=== PATIENT | male | born 1980 | race Caucasian/White ===

== ENCOUNTER 2024-05-16 09:28 | Observation (INO) ==
[2024-05-16] MEDS ORDERED: ULTRAM PO PRN (10:28)
[2024-05-16 10:59] LABS: BASOPHILS # (AUTO) 0.1 X10^3/uL (0.0-0.1); BASOPHILS % (AUTO) 0.7 % (0.2-1.0); EOSINOPHILS # (AUTO) 0.6 x10^3/uL (0.0-0.2); EOSINOPHILS % (AUTO) 5.7 % (0.9-2.9); HEMATOCRIT 43.2 % (42.0-54.0); HEMOGLOBIN 14.5 g/dL (13.5-18.0); LYMPHOCYTES # (AUTO) 1.8 X10^3/uL (1.3-2.9); LYMPHOCYTES % (AUTO) 17.5 % (21.0-51.0); MEAN CORPUSCULAR HEMOGLOBIN 26.7 pg (27.0-34.0); MEAN CORPUSCULAR HGB CONC 33.6 g/dL (33.0-35.0); MEAN CORPUSCULAR VOLUME 79.6 fL (80.0-100.0); MEAN PLATELET VOLUME 8.4 fL (7.4-11.0); MONOCYTES # (AUTO) 0.9 x10^3/uL (0.3-0.8); MONOCYTES % (AUTO) 8.6 % (0.0-13.0); NEUTROPHILS # (AUTO) 6.9 x10^3/uL (2.2-4.8); NEUTROPHILS % (AUTO) 67.5 % (42.0-75.0); PLATELET COUNT 180 X10^3/uL (150.0-450.0); RED BLOOD COUNT 5.43 X10^6/uL (4.7-6.0); RED CELL DISTRIBUTION WIDTH 16.1 % (11.6-16.5); WHITE BLOOD COUNT 10.2 X10^3/uL (3.6-10.0)
[2024-05-16] MEDS ORDERED: PHARMACY CONSULT - VANCOMYCIN XX SCH (11:00)
[2024-05-16 11:11] LABS: ALANINE AMINOTRANSFERASE 112 Units/L (12-78); ALBUMIN 2.9 g/dL (3.4-5.0); ALKALINE PHOSPHATASE 136 Units/L (46-116); ASPARTATE AMINO TRANSFERASE 59 Units/L (15-37); BLOOD UREA NITROGEN 11 mg/dL (7-18); CALCIUM 7.9 mg/dL (8.5-10.1); CARBON DIOXIDE 32.4 mmol/L (21-32); CHLORIDE 99 mmol/L (98-107); COR CA(FOR HYPOALB) 8.8 mg/dL (8.5-10.1); COR NA(FOR HYPERGLY) 139 mmol/L (136-145); CREATININE 1.32 mg/dL (0.70-1.30); GLUCOSE 147 mg/dL (65-99); SODIUM 138 mmol/L (136-145); TOTAL PROTEIN 6.9 g/dL (6.4-8.2); eGFR NON BLACK RACES > 60 (>60)
[2024-05-16] MEDS: VANCOMYCIN IV *PREMIX 1.5 G/300 ML BAG 1.5 G/300 ML PIGGYBACK IV ONE (11:13)
[2024-05-16] MEDS: TORADOL 30 MG VIAL IVP SCH (11:15)
[2024-05-16] MEDS: NS 250 ML IV 250 ML IV ONE (11:32)
[2024-05-16 11:53] VITALS: BMI 33.4
[2024-05-16] MEDS ORDERED: CONSULT PHARMACY - POTASSIUM & MAGNESIUM XX SCH (16:30)
[2024-05-16] MEDS: K-DUR TAB 20 MEQ PO SCH (17:46)
--- NOTE | 2024-05-16 18:59 | DR.H&P ---
H&P History & Physical for Day of: H&P Date: 05/16/24 Chief Complaint Chief Complaint: skin infection neck redness and pain History of Present Illness History of Present Illness: Patient is a 43-year-old male with a past medical history of hypertension presenting after failing outpatient treatment for cellulitis. He is a direct admission. Patient reported that earlier in the week on Sunday he noticed a spot in the back of his neck that was painful and red. He reports that symptoms progressively worsen over the week and redness and pain started to spread. He was treated outpatient with clindamycin without any improvement. He was admitted for cellulitis. On admission labs/imaging: WBC 10.2, hemoglobin 14.5, platelets 180, sodium 138, potassium 3.0, creatinine 1.32, glucose 147, CRP 64. X-ray of the neck is pending. Will start on IV antibiotics vancomycin. Margins have been demarcated. There does not appear to be any fluctuance that would require an incision and drainage. Was not able to obtain any discharge for culture. Will restart home medications. Will treat hypokalemia with electrolyte repletion per protocol. Restart home medication for hypertension. Otherwise continue with current treatment plan. Continue to closely monitor and follow-up labs in the morning. Past Surgical History Surgical History: No History Family History Family Medical History: Cancer, OR and Hypertension Social History Does any household member use tobacco: No Alcohol Use: Rarely Drug Use: None Medications Home Medications: Home Medications Medication Instructions Recorded Confirmed Type losartan 50 mg tablet 50 mg PO QDAY 05/16/24 05/16/24 History Allergies Allergies Allergy/AdvReac Type Severity Reaction Status Date / Time nkda Allergy Unknown Uncoded 05/16/24 09:22 Labs 05/16/24 10:45 05/16/24 10:45 Labs: Laboratory WBC 10.2 X10^3/uL (3.6-10.0) H 05/16/24 10:45 RBC 5.43 X10^6/uL (4.7-6.0) 05/16/24 10:45 Hgb 14.5 g/dL (13.5-18.0) 05/16/24 10:45 Hct 43.2 % (42.0-54.0) 05/16/24 10:45 MCV 79.6 fL (80.0-100.0) L 05/16/24 10:45 MCH 26.7 pg (27.0-34.0) L 05/16/24 10:45 MCHC 33.6 g/dL (33.0-35.0) 05/16/24 10:45 RDW 16.1 % (11.6-16.5) 05/16/24 10:45 Plt Count 180 X10^3/uL (150.0-450.0) 05/16/24 10:45 MPV 8.4 fL (7.4-11.0) 05/16/24 10:45 Neut % (Auto) 67.5 % (42.0-75.0) 05/16/24 10:45 Lymph % (Auto) 17.5 % (21.0-51.0) L 05/16/24 10:45 [place] % (Auto) 8.6 % (0.0-13.0) 05/16/24 10:45 Eos % (Auto) 5.7 % (0.9-2.9) H 05/16/24 10:45 Baso % (Auto) 0.7 % (0.2-1.0) 05/16/24 10:45 Neut # (Auto) 6.9 x10^3/uL (2.2-4.8) H 05/16/24 10:45 Lymph # (Auto) 1.8 X10^3/uL (1.3-2.9) 05/16/24 10:45 [place] # (Auto) 0.9 x10^3/uL (0.3-0.8) H 05/16/24 10:45 Eos # (Auto) 0.6 x10^3/uL (0.0-0.2) H 05/16/24 10:45 Baso # (Auto) 0.1 X10^3/uL (0.0-0.1) 05/16/24 10:45 Absolute Nucleated RBC 0.0 /100WBC 05/16/24 10:45 Sodium 138 mmol/L (136-145) 05/16/24 10:45 Corrected Sodium 139 mmol/L (136-145) 05/16/24 10:45 Potassium 3.0 mmol/L (3.5-5.1) L 05/16/24 10:45 Chloride 99 mmol/L (98-107) 05/16/24 10:45 Carbon Dioxide 32.4 mmol/L (21-32) H 05/16/24 10:45 BUN 11 mg/dL (7-18) 05/16/24 10:45 Creatinine 1.32 mg/dL (0.70-1.30) H 05/16/24 10:45 Est GFR (MDRD) Af Amer > 60 (>60) 05/16/24 10:45 Est GFR (MDRD) Non-Af > 60 (>60) 05/16/24 10:45 Glucose 147 mg/dL (65-99) H 05/16/24 10:45 Calcium 7.9 mg/dL (8.5-10.1) L 05/16/24 10:45 Corrected Calcium 8.8 mg/dL (8.5-10.1) 05/16/24 10:45 Magnesium 2.0 mg/dL (2.0-2.9) 05/16/24 10:45 Total Bilirubin 0.80 mg/dL (0.2-1.0) 05/16/24 10:45 AST 59 Units/L (15-37) H 05/16/24 10:45 ALT 112 Units/L (12-78) H 05/16/24 10:45 Alkaline Phosphatase 136 Units/L (46-116) H 05/16/24 10:45 C-Reactive Protein 64.60 mg/L (0-3.0) H 05/16/24 10:45 Total Protein 6.9 g/dL (6.4-8.2) 05/16/24 10:45 Albumin 2.9 g/dL (3.4-5.0) L 05/16/24 10:45 Globulin 4.0 g/dL (2.5-4.5) 05/16/24 10:45 Albumin/Globulin Ratio 0.7 Ratio (1.1-2.1) L 05/16/24 10:45 Review of Systems Constitutional: No Symptoms Reported Eyes: No Symptoms Reported ENT: No Symptoms Reported Respiratory: No Symptoms Reported Cardiovascular: No Symptoms Reported Gastrointestinal: No Symptoms Reported Genitourinary: No Symptoms Reported Musculoskeletal: No Symptoms Reported Skin: Other (neck erythema and pain) Neurological: No Symptoms Reported Physical Exam Vital Signs: Vital Signs Temperature 98.5 F Pulse Rate [Left Brachial] 95 Respiratory Rate 18 Respiratory Rate 18 Respiratory Rate 21 Respiratory Rate 21 Respiratory Rate 18 Blood Pressure [Right Arm] 136/71 O2 Sat by Pulse Oximetry 95 Oriented: Normal Eyes: Normal Ear: Normal Nose: Normal Throat: Normal Respiratory: Clear Throughout Cardiovascular: Normal : Normal Auscultation: Bowel Sounds: Normal Palpation: Normal Tenderness: Normal Skin: Other (erythema and induration of posterior neck, no discharge, warm) Musculoskeletal: Normal Psychiatric: Normal Mood Description: Calm and Appropriate Affect: Normal Speech Pattern: Clear and Appropriate Assessment/Plan (1) Cellulitis: Status: Acute Plan: IV vancomycin (2) Hypokalemia: Status: Acute Plan: replete per protocol
[2024-05-16] MEDS: VANCOMYCIN IV *PREMIX 1.25 G/250 ML BAG 1.25 G/250 ML PIGGYBACK IV SCH (21:05)
[2024-05-17] MEDS: TYLENOL 325 MG TAB PO PRN (00:39)
--- NOTE | 2024-05-17 05:57 | RAD ---
EXAM:Cervical spine five viewsHISTORY:CellulitisCOMPARISON:None br.br.br.br involving the vertebral bodies, disc spaces, neural foramina or prevertebral soft tissues. Atlantoaxial complex is midline and intact.IMPRESSION:No definite abnormality identified.THIS IS AN ELECTRONICALLY VERIFIED FINAL REPORT05/17/2024 5:54 AM - Electronically signed by Rell Russ MD
[2024-05-17 06:34] LABS: BASOPHILS # (AUTO) 0.1 X10^3/uL (0.0-0.1); BASOPHILS % (AUTO) 0.7 % (0.2-1.0); EOSINOPHILS # (AUTO) 0.8 x10^3/uL (0.0-0.2); EOSINOPHILS % (AUTO) 8.4 % (0.9-2.9); HEMATOCRIT 42.5 % (42.0-54.0); HEMOGLOBIN 14.2 g/dL (13.5-18.0); LYMPHOCYTES # (AUTO) 3.7 X10^3/uL (1.3-2.9); LYMPHOCYTES % (AUTO) 36.4 % (21.0-51.0); MEAN CORPUSCULAR HEMOGLOBIN 26.6 pg (27.0-34.0); MEAN CORPUSCULAR HGB CONC 33.5 g/dL (33.0-35.0); MEAN CORPUSCULAR VOLUME 79.4 fL (80.0-100.0); MEAN PLATELET VOLUME 8.8 fL (7.4-11.0); MONOCYTES # (AUTO) 0.8 x10^3/uL (0.3-0.8); MONOCYTES % (AUTO) 7.6 % (0.0-13.0); NEUTROPHILS # (AUTO) 4.7 x10^3/uL (2.2-4.8); NEUTROPHILS % (AUTO) 46.9 % (42.0-75.0); PLATELET COUNT 198 X10^3/uL (150.0-450.0); RED BLOOD COUNT 5.35 X10^6/uL (4.7-6.0); RED CELL DISTRIBUTION WIDTH 15.9 % (11.6-16.5); WHITE BLOOD COUNT 10.1 X10^3/uL (3.6-10.0)
[2024-05-17 07:00] LABS: ALANINE AMINOTRANSFERASE 125 Units/L (12-78); ALBUMIN 2.6 g/dL (3.4-5.0); ALKALINE PHOSPHATASE 132 Units/L (46-116); ASPARTATE AMINO TRANSFERASE 71 Units/L (15-37); BLOOD UREA NITROGEN 15 mg/dL (7-18); CALCIUM 7.9 mg/dL (8.5-10.1); CHLORIDE 104 mmol/L (98-107); CREATININE 1.09 mg/dL (0.70-1.30); GLUCOSE 101 mg/dL (65-99); POTASSIUM 3.3 mmol/L (3.5-5.1); SODIUM 142 mmol/L (136-145); TOTAL PROTEIN 6.5 g/dL (6.4-8.2); eGFR NON BLACK RACES > 60 (>60)
[2024-05-17] MEDS ORDERED: CONSULT PHARMACY - POTASSIUM & MAGNESIUM XX SCH ×2 (08:00→09:00)
[2024-05-17] MEDS: COZAAR PO SCH (08:52)
[2024-05-17] MEDS: K-DUR TAB 20 MEQ PO SCH (08:52)
[2024-05-17] MEDS: TORADOL 30 MG VIAL IVP PRN (09:00)
[2024-05-17 11:12] LABS: CREATININE 1.12 mg/dL (0.70-1.30); VANCOMYCIN,TROUGH 17.8 ug/mL (15-20)
--- NOTE | 2024-05-17 14:01 | DR.PROGNOT ---
HOSPITAL PROGRESS NOTE Progress Note for Day of: Progress Note Date: 05/17/24 Chief Complaint Chief Complaint: Neck pain History of Present Illness History of Present Illness: Patient admitted yesterday for failure of outpatient antibiotics for posterior neck cellulitis. He does have more fluctuance with scabbed over area that was not present yesterday. His erythema has not extended past the borders. Pain is improved and nurse and patient feel like the size has gone down overall. He is tolerating IV vancomycin well. There is no cultures yet but will be obtained today. PE: Well-developed, well-nourished male in no acute distress. EXTR grossly normal. Hearing intact conversation. Heart regular rate and rhythm. Speaking in full sentences with clear respirations. Posterior neck with a marked area of induration, erythema, warmth. It does have a central scab with some fluctuance under it. Past Medical Family Social History Allergies: Allergies nkda Allergy (Unknown, Uncoded 05/16/24 09:22) Vital Signs Vital Signs: Vital Signs Temperature 98.4 F Temperature 98.0 F Pulse Rate [Left Brachial] 77 Pulse Rate [Left Brachial] 82 Respiratory Rate 21 Respiratory Rate 18 Respiratory Rate 18 Respiratory Rate 21 Blood Pressure [Right Arm] 134/95 Blood Pressure [Right Arm] 136/97 O2 Sat by Pulse Oximetry 95 O2 Sat by Pulse Oximetry 96 Physical Exam Oriented: Normal Eyes: Normal Ear: Normal Nose: Normal Throat: Normal Cardiovascular: Normal : Normal GI:Auscultation: Normal GI:Palpation: Normal GI: Tenderness: Normal Skin: Other (erythema and induration of posterior neck, no discharge, warm) Musculoskeletal: Normal Psychiatric: Normal Mood Description: Calm and Appropriate Affect: Normal Speech Pattern: Clear and Appropriate Laboratory and Diagnostics 05/17/24 05:25 05/17/24 10:50 Labs: Laboratory WBC 10.1 X10^3/uL (3.6-10.0) H 05/17/24 05:25 RBC 5.35 X10^6/uL (4.7-6.0) 05/17/24 05:25 Hgb 14.2 g/dL (13.5-18.0) 05/17/24 05:25 Hct 42.5 % (42.0-54.0) 05/17/24 05:25 MCV 79.4 fL (80.0-100.0) L 05/17/24 05:25 MCH 26.6 pg (27.0-34.0) L 05/17/24 05:25 MCHC 33.5 g/dL (33.0-35.0) 05/17/24 05:25 RDW 15.9 % (11.6-16.5) 05/17/24 05:25 Plt Count 198 X10^3/uL (150.0-450.0) 05/17/24 05:25 MPV 8.8 fL (7.4-11.0) 05/17/24 05:25 Neut % (Auto) 46.9 % (42.0-75.0) 05/17/24 05:25 Lymph % (Auto) 36.4 % (21.0-51.0) 05/17/24 05:25 [place] % (Auto) 7.6 % (0.0-13.0) 05/17/24 05:25 Eos % (Auto) 8.4 % (0.9-2.9) H 05/17/24 05:25 Baso % (Auto) 0.7 % (0.2-1.0) 05/17/24 05:25 Neut # (Auto) 4.7 x10^3/uL (2.2-4.8) 05/17/24 05:25 Lymph # (Auto) 3.7 X10^3/uL (1.3-2.9) H 05/17/24 05:25 [place] # (Auto) 0.8 x10^3/uL (0.3-0.8) 05/17/24 05:25 Eos # (Auto) 0.8 x10^3/uL (0.0-0.2) H 05/17/24 05:25 Baso # (Auto) 0.1 X10^3/uL (0.0-0.1) 05/17/24 05:25 Absolute Nucleated RBC 0.1 /100WBC 05/17/24 05:25 Sodium 142 mmol/L (136-145) 05/17/24 05:25 Corrected Sodium TNP 05/17/24 05:25 Potassium 3.3 mmol/L (3.5-5.1) L 05/17/24 05:25 Chloride 104 mmol/L (98-107) 05/17/24 05:25 Carbon Dioxide 29.0 mmol/L (21-32) 05/17/24 05:25 BUN 15 mg/dL (7-18) 05/17/24 05:25 Creatinine 1.12 mg/dL (0.70-1.30) 05/17/24 10:50 Est GFR (MDRD) Af Amer > 60 (>60) 05/17/24 05:25 Est GFR (MDRD) Non-Af > 60 (>60) 05/17/24 05:25 Glucose 101 mg/dL (65-99) H 05/17/24 05:25 Calcium 7.9 mg/dL (8.5-10.1) L 05/17/24 05:25 Corrected Calcium 9.0 mg/dL (8.5-10.1) 05/17/24 05:25 Magnesium 2.0 mg/dL (2.0-2.9) 05/16/24 10:45 Total Bilirubin 0.30 mg/dL (0.2-1.0) 05/17/24 05:25 AST 71 Units/L (15-37) H 05/17/24 05:25 ALT 125 Units/L (12-78) H 05/17/24 05:25 Alkaline Phosphatase 132 Units/L (46-116) H 05/17/24 05:25 C-Reactive Protein 64.60 mg/L (0-3.0) H 05/16/24 10:45 Total Protein 6.5 g/dL (6.4-8.2) 05/17/24 05:25 Albumin 2.6 g/dL (3.4-5.0) L 05/17/24 05:25 Globulin 3.9 g/dL (2.5-4.5) 05/17/24 05:25 Albumin/Globulin Ratio 0.7 Ratio (1.1-2.1) L 05/17/24 05:25 Vancomycin Trough 17.8 ug/mL (15-20) 05/17/24 10:50 Assessment and Plan 1: Posterior neck cellulitis. Obtain culture today. Labs tomorrow. Continue IV Vanco. 2: Hypertension. Continue current. Continue to monitor. 3: Simple obesity. Diet and exercise as an outpatient. 4: Elevated liver enzymes. Outpatient workup. No signs or symptoms today.
[2024-05-17] MEDS: PHARMACY COMMENT IV ONE (19:10)
[2024-05-17 19:53] VITALS: O2SAT 96
[2024-05-18 06:02] LABS: BASOPHILS # (AUTO) 0.1 X10^3/uL (0.0-0.1); BASOPHILS % (AUTO) 0.9 % (0.2-1.0); EOSINOPHILS # (AUTO) 0.8 x10^3/uL (0.0-0.2); EOSINOPHILS % (AUTO) 9.8 % (0.9-2.9); HEMATOCRIT 42.2 % (42.0-54.0); HEMOGLOBIN 13.9 g/dL (13.5-18.0); LYMPHOCYTES # (AUTO) 2.8 X10^3/uL (1.3-2.9); LYMPHOCYTES % (AUTO) 34.3 % (21.0-51.0); MEAN CORPUSCULAR HEMOGLOBIN 26.5 pg (27.0-34.0); MEAN CORPUSCULAR VOLUME 80.2 fL (80.0-100.0); MEAN PLATELET VOLUME 8.5 fL (7.4-11.0); MONOCYTES # (AUTO) 0.5 x10^3/uL (0.3-0.8); MONOCYTES % (AUTO) 6.7 % (0.0-13.0); NEUTROPHILS % (AUTO) 48.3 % (42.0-75.0); PLATELET COUNT 198 X10^3/uL (150.0-450.0); RED BLOOD COUNT 5.26 X10^6/uL (4.7-6.0); RED CELL DISTRIBUTION WIDTH 16.4 % (11.6-16.5); WHITE BLOOD COUNT 8.2 X10^3/uL (3.6-10.0)
[2024-05-18 06:18] LABS: ALANINE AMINOTRANSFERASE 110 Units/L (12-78); ALBUMIN 2.5 g/dL (3.4-5.0); ALKALINE PHOSPHATASE 117 Units/L (46-116); ASPARTATE AMINO TRANSFERASE 44 Units/L (15-37); BLOOD UREA NITROGEN 17 mg/dL (7-18); CALCIUM 7.5 mg/dL (8.5-10.1); CARBON DIOXIDE 27.5 mmol/L (21-32); CHLORIDE 106 mmol/L (98-107); COR CA(FOR HYPOALB) 8.7 mg/dL (8.5-10.1); CREATININE 1.06 mg/dL (0.70-1.30); GLUCOSE 101 mg/dL (65-99); MAGNESIUM 1.9 mg/dL (2.0-2.9); POTASSIUM 3.4 mmol/L (3.5-5.1); SODIUM 141 mmol/L (136-145); TOTAL PROTEIN 6.2 g/dL (6.4-8.2); eGFR NON BLACK RACES > 60 (>60)
[2024-05-18] MEDS ORDERED: CONSULT PHARMACY - POTASSIUM & MAGNESIUM XX SCH (07:00)
[2024-05-18 08:53] VITALS: BP 154/90; PULSE 93; RESP 21; TEMP 97.8
[2024-05-18] MEDS: MAG-OX TAB PO SCH (09:48)
[2024-05-18] MEDS: K-DUR TAB 20 MEQ PO SCH (09:49)
--- NOTE | 2024-05-18 11:33 | PCM.DCPLAN ---
DISCHARGE SUMMARY Admission Date Date of Admission: 05/16/24 Discharge Date Discharge Date: 05/18/24 Admission Diagnoses (1) Cellulitis: Status: Acute (2) Hypokalemia: Status: Acute Discharge Medications Discharge Medications: Prescriptions: Hospital Course Vital Signs: Vital Signs Temperature 97.8 F Temperature 97.9 F Pulse Rate [Left Brachial] 93 Pulse Rate [Left Brachial] 80 Respiratory Rate 21 Respiratory Rate 18 Blood Pressure [Right Arm] 154/90 Blood Pressure [Right Arm] 130/77 O2 Sat by Pulse Oximetry 96 O2 Sat by Pulse Oximetry 96 Latest Lab Results: Laboratory Last Values WBC 8.2 X10^3/uL (3.6-10.0) 05/18/24 05:23 RBC 5.26 X10^6/uL (4.7-6.0) 05/18/24 05:23 Hgb 13.9 g/dL (13.5-18.0) 05/18/24 05:23 Hct 42.2 % (42.0-54.0) 05/18/24 05:23 MCV 80.2 fL (80.0-100.0) 05/18/24 05:23 MCH 26.5 pg (27.0-34.0) L 05/18/24 05:23 MCHC 33.0 g/dL (33.0-35.0) 05/18/24 05:23 RDW 16.4 % (11.6-16.5) 05/18/24 05:23 Plt Count 198 X10^3/uL (150.0-450.0) 05/18/24 05:23 MPV 8.5 fL (7.4-11.0) 05/18/24 05:23 Neut % (Auto) 48.3 % (42.0-75.0) 05/18/24 05:23 Lymph % (Auto) 34.3 % (21.0-51.0) 05/18/24 05:23 [place] % (Auto) 6.7 % (0.0-13.0) 05/18/24 05:23 Eos % (Auto) 9.8 % (0.9-2.9) H 05/18/24 05:23 Baso % (Auto) 0.9 % (0.2-1.0) 05/18/24 05:23 Neut # (Auto) 4.0 x10^3/uL (2.2-4.8) 05/18/24 05:23 Lymph # (Auto) 2.8 X10^3/uL (1.3-2.9) 05/18/24 05:23 [place] # (Auto) 0.5 x10^3/uL (0.3-0.8) 05/18/24 05:23 Eos # (Auto) 0.8 x10^3/uL (0.0-0.2) H 05/18/24 05:23 Baso # (Auto) 0.1 X10^3/uL (0.0-0.1) 05/18/24 05:23 Absolute Nucleated RBC 0.1 /100WBC 05/18/24 05:23 Sodium 141 mmol/L (136-145) 05/18/24 05:23 Corrected Sodium TNP 05/18/24 05:23 Potassium 3.4 mmol/L (3.5-5.1) L 05/18/24 05:23 Chloride 106 mmol/L (98-107) 05/18/24 05:23 Carbon Dioxide 27.5 mmol/L (21-32) 05/18/24 05:23 BUN 17 mg/dL (7-18) 05/18/24 05:23 Creatinine 1.06 mg/dL (0.70-1.30) 05/18/24 05:23 Est GFR (MDRD) Af Amer > 60 (>60) 05/18/24 05:23 Est GFR (MDRD) Non-Af > 60 (>60) 05/18/24 05:23 Glucose 101 mg/dL (65-99) H 05/18/24 05:23 Calcium 7.5 mg/dL (8.5-10.1) L 05/18/24 05:23 Corrected Calcium 8.7 mg/dL (8.5-10.1) 05/18/24 05:23 Magnesium 1.9 mg/dL (2.0-2.9) L 05/18/24 05:23 Total Bilirubin 0.30 mg/dL (0.2-1.0) 05/18/24 05:23 AST 44 Units/L (15-37) H 05/18/24 05:23 ALT 110 Units/L (12-78) H 05/18/24 05:23 Alkaline Phosphatase 117 Units/L (46-116) H 05/18/24 05:23 C-Reactive Protein 64.60 mg/L (0-3.0) H 05/16/24 10:45 Total Protein 6.2 g/dL (6.4-8.2) L 05/18/24 05:23 Albumin 2.5 g/dL (3.4-5.0) L 05/18/24 05:23 Globulin 3.7 g/dL (2.5-4.5) 05/18/24 05:23 Albumin/Globulin Ratio 0.7 Ratio (1.1-2.1) L 05/18/24 05:23 Vancomycin Trough 17.8 ug/mL (15-20) 05/17/24 10:50 Hospital Course: Pt admitted due to failure of outpt antibiotics (clinda) to cover a posterior neck cellulitis. He has done well over the last 2 days with great impovement in his pain, some drainge, and decreased induration. He will be discharged home on Doxycycline for 7 more days. Cultures with NGTD. Pt stable for discharge.
== END 2024-05-18 11:30 | disposition home or self-care (01) ==
LOC: MED/SURG
PROVIDERS: ADMIT Family Medicine; ATTEND Family Medicine
DX: R79.82 Elevated C-reactive protein (CRP); E83.42 Hypomagnesemia; B96.89 Other specified bacterial agents as the cause of diseases classified elsewhere; R74.8 Abnormal levels of other serum enzymes; Z68.34 Body mass index [BMI] 34.0-34.9, adult; E66.8 Other obesity; I10 Essential (primary) hypertension; L03.221 Cellulitis of neck; E87.6 Hypokalemia